=== PATIENT | female | born 1995 | race Caucasian/White ===

== ENCOUNTER 2019-02-24 14:52 | Emergency (ER) | payer OTHER ==
[~2019-02-24] VITALS: Ht 177.8 cm; Wt 90.5 kg
[2019-02-24 14:56] VITALS: BP 112/64; TEMP 97.5
[2019-02-24] MEDS ORDERED: PRENATAL TABLET PO (15:33)
[2019-02-24] MEDS ORDERED: EFFEXOR 3737.5 MG/TA PO (15:33)
[2019-02-24] MEDS ORDERED: DESYREL 50MG50 MG PO (15:34)
[2019-02-24 15:52] LABS: BASO % 0.3 % (0.0-2.0); EOS # 0.1 (0.0-0.7); EOS % 0.5 % (0-4.0); GRAN # 8.7 (1.4-6.5); GRAN % 73.2 % (42.2-75.2); HEMOGLOBIN 12.9 g/dl (12.5-16.0); LYMPH # 2.4 (1.2-3.4); MEAN CELL VOLUME 94 fl (80.0-100.0); MEAN CORPUSCULAR HEMOGLOBIN 33 pg (27.0-31.0); MEAN CORPUSCULAR HGB CONC 35 g/dl (33.0-37.0); MEAN PLATELET VOLUME 11.9 fl (7.4-10.4); MONO # 0.7 (0.1-0.6); MONO % 5.7 % (1.7-9.3); PLATELET COUNT 158 K/mm3 (130-400); RED BLOOD COUNT 3.89 M/mm3 (4.10-5.30); REDCELL DISTRIBUTION WIDTH-CV 11.8 % (11.5-14.5)
[2019-02-24 15:53] LABS: HEMATOCRIT 36.4 % (37.0-47.0)
[2019-02-24 16:03] LABS: CALCIUM 9.3 mg/dL (8.4-10.2); CREATININE, serum 0.62 (0.52-1.25)
[2019-02-24 16:49] VITALS: PULSE 81
== END 2019-02-24 16:49 | disposition home or self-care (01) ==
LOC: COL.ER 14:52
PROVIDERS: Emergency Medicine
DX: R20.2 Paresthesia of skin (principal)